=== PATIENT | female | born 1955 | race African-American/Black ===

== ENCOUNTER 2016-10-20 12:59 | Emergency (ER) | payer SELFPAY ==
[~2016-10-20] VITALS: Ht 152.4 cm; Wt 83.0 kg
[2016-10-20 15:19] LABS: BASOPHILS % 1.1 % (0.0-2.0); EOSINOPHILS % 4.2 % (0.0-5.0); HEMOGLOBIN. 12.4 g/dL (12.0-16.0); LYMPHOCYTES % 20.9 % (20.0-50.0); MEAN CORPUSCULAR HEMOGLOBIN 27.6 pg (28.0-32.0); MEAN CORPUSCULAR VOLUME 84.7 fL (81.0-99.0); MEAN PLATELET VOLUME 8.9 fl (7.4-10.4); MONOCYTES % 9.7 % (2.0-8.0); NEUTROPHILS % 64.1 % (40.0-76.0); PLATELET 265 x1000/uL (130-400); RED BLOOD CELL COUNT 4.49 mill/uL (4.2-5.4); RED CELL DISTRIBUTION WIDTH 14.4 % (11.6-14.6)
[2016-10-20 15:21] LABS: PROTHROMBIN TIME 10.7 sec
[2016-10-20 15:23] LABS: CARBON DIOXIDE 28 mEq/L (21-32); CHLORIDE 106 mEq/L (98-107)
[2016-10-20 15:29] LABS: TROPONIN I < 0.02 ng/mL (0.00-0.04)
[2016-10-20 15:57] LABS: CLARITY URINE CLEAR (CLEAR); COLOR URINE YELLOW (YELLOW); GLUCOSE URINE NEGATIVE (NEGATIVE); KETONES URINE NEGATIVE (NEGATIVE); LEUKOCYTE ESTERASE URINE 1+ (NEGATIVE); NITRITE URINE NEGATIVE (NEGATIVE); OCCULT BLOOD URINE NEGATIVE (NEGATIVE); PH URINE 6.5 (4.5-8.0); PROTEIN URINE NEGATIVE (NEGATIVE); SPECIFIC GRAVITY URINE 1.018 (1.005-1.030)
[2016-10-20 18:35] VITALS: BP 120/73
== END 2016-10-20 18:58 | disposition home or self-care (01) ==
LOC: ER 12:59
DX: N39.0 Urinary tract infection, site not specified (principal); R53.1 Weakness; R51 Headache; R53.83 Other fatigue; M41.84 Other forms of scoliosis, thoracic region
CPT/HCPCS: 36415; 70450; 71010; 80053; 81001; 83880; 84484; 85025; 85610; 93005; 99285; Z7610

== ENCOUNTER 2017-10-17 16:00 | Emergency (ER) | payer SELFPAY ==
[~2017-10-17] VITALS: Ht 152.4 cm; Wt 85.0 kg
[2017-10-17 16:26] VITALS: BP 174/92
[2017-10-17] MEDS ORDERED: TETRACAINE 0.5% OPHTH DROPS 4ML LEFTEYE ONE (16:30)
[2017-10-17] MEDS ORDERED: FLUORESCEIN SODIUM 1MG/STRIP LEFTEYE ONE (16:30)
== END 2017-10-18 01:00 | disposition left against medical advice (07) ==
LOC: ER 16:00
DX: H57.12 Ocular pain, left eye (principal)
CPT/HCPCS: 99281

== ENCOUNTER 2021-12-27 14:24 | Emergency (ER) | payer OTHER ==
[~2021-12-27] VITALS: Ht 152.4 cm; Wt 80.0 kg
[2021-12-27 14:54] VITALS: BP 141/102
== END 2021-12-27 17:41 | disposition left against medical advice (07) ==
LOC: ER 14:24
DX: Z53.21 Procedure and treatment not carried out due to patient leaving prior to being seen by health care provider (principal); E78.00 Pure hypercholesterolemia, unspecified; I10 Essential (primary) hypertension; Z98.890 Other specified postprocedural states

== ENCOUNTER 2021-12-29 08:24 | Emergency (ER) | payer OTHER ==
[~2021-12-29] VITALS: Ht 152.4 cm; Wt 79.0 kg
[2021-12-29 08:31] VITALS: BP 146/60
[2021-12-29] MEDS ORDERED: CLIN-194 MT (09:09)
== END 2021-12-29 09:25 | disposition home or self-care (01) ==
LOC: ER 08:24
DX: S80.861A Insect bite (nonvenomous), right lower leg, initial encounter (principal); L03.115 Cellulitis of right lower limb; I10 Essential (primary) hypertension; E78.00 Pure hypercholesterolemia, unspecified; W57.XXXA Bitten or stung by nonvenomous insect and other nonvenomous arthropods, initial encounter; Y93.89 Activity, other specified; Y92.018 Other place in single-family (private) house as the place of occurrence of the external cause
CPT/HCPCS: 99281

== ENCOUNTER 2025-03-14 13:39 | Inpatient (IN) | payer MEDICARE, OTHER ==
[~2025-03-14] VITALS: Ht 167.6 cm; Wt 83.9 kg
[~2025-03-14 13:39] MED LIST: CLIN-194 MT
[2025-03-14 14:59] VITALS: PULSE 88; RESP 23; O2SAT 93
[2025-03-14] MEDS: IPRATROPIUM/ALBUTEROL 0.5-3(2.5)MG/3ML NEB HHN ONE (14:59)
[2025-03-14] MEDS: ASPIRIN 81MG TABLET PO ONE (15:04)
[2025-03-14 15:12] LABS: BASOPHILS % 1.1 % (0.0-2.0); EOSINOPHILS % 4.0 % (0.0-5.0); HEMATOCRIT. 37.5 % (36.0-48.0); HEMOGLOBIN. 11.9 g/dL (12.0-16.0); LYMPHOCYTES % 23.7 % (20.0-50.0); MEAN PLATELET VOLUME 9.1 fl (7.4-10.4); MONOCYTES % 10.9 % (2.0-8.0); NEUTROPHILS % 60.3 % (40.0-76.0); PLATELET 262 x1000/uL (130-400); RED BLOOD CELL COUNT 4.35 mill/uL (4.2-5.4); RED CELL DISTRIBUTION WIDTH 14.5 % (11.6-14.6)
[2025-03-14 15:23] LABS: CREATININE 0.9 mg/dL (0.6-1.0)
[2025-03-14 15:24] LABS: UREA NITROGEN BLOOD 12 mg/dL (9-23)
[2025-03-14 15:25] LABS: TROPONIN I HIGH SENSITIVITY 6 ng/L (3.0-34)
[2025-03-14 20:30] VITALS: BP 153/94; PULSE 66; PULSE 67; RESP 19; RESP 22; TEMP 36.5848; TEMP 36.6; O2SAT 97
[2025-03-14] MEDS ORDERED: IPRATROPIUM/ALBUTEROL 0.5-3(2.5)MG/3ML NEB HHN PRN ×2 (22:45)
[2025-03-14] MEDS ORDERED: ATOR20TA65 MT (22:58)
[2025-03-14] MEDS ORDERED: HYDR25TA MT (22:58)
[2025-03-15] VITALS: BP 145/91; PULSE 63; RESP 21; TEMP 36.5; O2SAT 95
[2025-03-15 04:00] VITALS: BP 134/65; PULSE 63; RESP 19; TEMP 36.7; O2SAT 97
[2025-03-15 06:40] LABS: CREATININE 1.0 mg/dL (0.6-1.0); TRIGLYCERIDE 69 mg/dL (0-150); UREA NITROGEN BLOOD 12 mg/dL (9-23)
[2025-03-15 06:41] LABS: LDL CHOLESTEROL 87 mg/dL (5-100); PROTEIN TOTAL 6.6 g/dL (6.0-8.3)
[2025-03-15 06:42] LABS: ASPARTATE AMINOTRANSFERASE 18 IU/L (<34); BILIRUBIN TOTAL 0.6 mg/dL (0.1-1.0)
[2025-03-15 08:00] VITALS: BP 140/81; PULSE 75; RESP 14; TEMP 36.3; O2SAT 98
[2025-03-15] MEDS: ASPIRIN 81MG EC TABLET PO SCH (09:14)
[2025-03-15] MEDS: METOPROLOL TARTRATE 50MG TABLET PO SCH (09:14)
[2025-03-15 09:43] LABS: TROPONIN I HIGH SENSITIVITY 8 ng/L (3.0-34)
[2025-03-15 12:00] VITALS: BP 143/88; PULSE 69; RESP 15; TEMP 36.8; O2SAT 97
[2025-03-15 16:00] VITALS: BP 127/76; PULSE 61; RESP 18; TEMP 36.6; O2SAT 98
[2025-03-15 20:00] VITALS: BP 125/86; PULSE 78; RESP 16; TEMP 36.6; O2SAT 97
[2025-03-15] MEDS: ATORVASTATIN CALCIUM 40MG TABLET PO SCH (21:00)
[2025-03-16 00:27] VITALS: BP 109/98; PULSE 62; RESP 15; TEMP 36.6; O2SAT 97
[2025-03-16 04:27] VITALS: BP 120/78; PULSE 68; RESP 13; TEMP 36.6; O2SAT 98
[2025-03-16 08:00] VITALS: BP 149/89; PULSE 69; RESP 13; TEMP 36.4; O2SAT 98
[2025-03-16] MEDS ORDERED: VERAPAMIL HCL 2.5 MG/1 ML 2ML VIAL IV ONE (11:29)
[2025-03-16] MEDS ORDERED: HEPARIN 1000 UNITS/ML 10ML ONE (11:29)
[2025-03-16] MEDS ORDERED: LIDOCAINE HCL 1% 20ML VIAL ONE (11:30)
[2025-03-16] MEDS ORDERED: IODIXANOL 320MG/ML 100 ML BOTTLE IV ONE (11:30)
[2025-03-16] MEDS ORDERED: FENTANYL CITRATE/PF 50MCG/ML 2ML VIAL ONE (11:44)
[2025-03-16] MEDS ORDERED: MIDAZOLAM HCL 2 MG/2 ML VIAL ONE (11:45)
[2025-03-16] MEDS ORDERED: DIPHENHYDRAMINE 50MG/ML VIAL ONE (11:49)
[2025-03-16 12:00] VITALS: BP 143/77; PULSE 54; RESP 12; TEMP 36.5; O2SAT 97
[2025-03-16] MEDS ORDERED: ATROPINE SULFATE 1MG/10ML SYR IV PRN (12:45)
[2025-03-16] MEDS ORDERED: ACETAMINOPHEN 325MG TABLET PO PRN (12:45)
[2025-03-16] MEDS ORDERED: FLUT1DIS3 INH (12:53)
[2025-03-16] MEDS ORDERED: ALBU18HF2 IH (12:53)
[2025-03-16 16:00] VITALS: BP 144/93; PULSE 88; RESP 22; TEMP 36.3; O2SAT 99
== END 2025-03-16 19:20 | disposition home or self-care (01) | DRG 287 ==
LOC: ER 13:39 → EDBEDREQ 16:45 → EDBEDREQTM 16:45 → 3WST 19:56
PROVIDERS: ADMIT Internal Medicine; ATTEND Internal Medicine
PROC: 4A023N7 Measurement of Cardiac Sampling and Pressure, Left Heart, Percutaneous Approach (ICD-10-PCS; principal; 2025-03-16)
PROC: B211YZZ Fluoroscopy of Multiple Coronary Arteries using Other Contrast (ICD-10-PCS; 2025-03-16)
DX: I25.110 Atherosclerotic heart disease of native coronary artery with unstable angina pectoris (principal); J45.901 Unspecified asthma with (acute) exacerbation; D64.9 Anemia, unspecified; I10 Essential (primary) hypertension; E78.00 Pure hypercholesterolemia, unspecified; Z85.3 Personal history of malignant neoplasm of breast; Z86.73 Personal history of transient ischemic attack (TIA), and cerebral infarction without residual deficits
CPT/HCPCS: 36415; 71045; 80048; 80053; 80061; 84484; 85025; 93005; 93306; 93458; 94640; 99285; A4606; A4615; C1769; C1887; C1893; J1200; J1644; J2003; J2250; J3010; J3490; Q9967